=== PATIENT | female | born 1985 | race Caucasian/White ===

== ENCOUNTER → 2016-10-18 | Day surgery (SDC) | payer SELFPAY ==
[~2016-10-18] VITALS: Ht 165.1 cm; Wt 51.3 kg
[2016-10-18] VITALS (9 sets, daily range): BP systolic 103–128; BP diastolic 68–78
[~2016-10-18] MED LIST: PROTONIX40 MG ORAL; Propofol 10mg/ml 20ml IV ONE
--- NOTE | 2016-10-18 12:14 | Pre-Procedure Note/Attestation ---
Pre-Procedure Note/Attestation Complete Prior to Procedure Planned Procedure: not applicable Procedure Narrative: egd Indications for Procedure Pre-Operative Diagnosis: gerd Attestation I attest that I discussed the nature of the procedure; its benefits; risks and complications; and alternatives (and the risks and benefits of such alternatives ), prior to the procedure, with the patient (or the patient's legal healthcare sales representative). I attest that, if there was a reasonable possibility of needing a blood transfusion, the patient (or the patient's legal healthcare sales representative) was given the [facility] standardized written summary, pursuant to the [place] Blood Safety Act ([place] Health and Safety Code # 1645, as amended). I attest that I re-evaluated the patient just prior to the surgery and that there has been no change in the patient's H&P, except as documented below: JP SCHWARTZ Oct 18, 2016 12:14
--- NOTE | 2016-10-18 12:16 | Short Stay Surgery H&P ---
History of Present Illness History of Present Illness Chief Complaint GERD HPI Rozina Grimm is a 31 year old female who was admitted on for Heartburn Patient History Allergies: Coded Allergies: No Known Allergies (Unverified , 07/10/14) PAST MEDICAL HISTORY: (1) GERD (gastroesophageal reflux disease) (2) Arthralgia of ankle or foot, left Past Surgeries: Social History: Medication History Scheduled Pantoprazole* (Protonix*), 40 MG ORAL BID, (Reported) Review of Systems Cardiovascular: Reports: no symptoms Respiratory: Reports: no symptoms Skeletal: Reports: no symptoms Gastrointestinal: Reports: no symptoms Genitourinary: Reports: no symptoms Neurologic: Reports: no symptoms Endocrine: Reports: no symptoms Hematologic: Reports: no symptoms Physical Exam Vital Signs Last Vital Signs Date Time Temp Pulse Resp B/P Pulse Ox O2 Delivery O2 Flow Rate FiO2 10/18/16 11:53 98.1 85 20 128/78 100 Room Air Labs Laboratory Tests Test 10/18/16 11:10 Urine HCG, Qualitative Negative Skin: normal HENT: normal Heart: normal Lungs: normal Abdomen: normal Extremities: normal Plan Plan of Care egd Final Diagnosis: Attestation Are the patient's medical conditions optimized for surgery? Attestation Response: yes JP SCHWARTZ Oct 18, 2016 12:15
--- NOTE | 2016-10-18 12:45 | Anethesia Preoperative Eval ---
Anesthesia Pre-op PMH/ROS General Date of Evaluation: Oct 18, 2016 Time of Evaluation: 12:33 Anesthesiologist: asmita ASA Score: ASA 2 Mallampati Score Class I : Soft palate, uvula, fauces, pillars visible Class II: Soft palate, uvula, fauces visible Class III: Soft palate, base of uvula visible Class IV: Only hard plate visible Mallampati Classification: Class II Surgeon: mague Diagnosis: GERD,abdominal pain Surgical Procedure: egd Anesthesia History: none Allergies: Coded Allergies: No Known Allergies (Unverified , 07/10/14) Past Medical History Gastrointestinal/Genitourinary: Reports: GERD Anesthesia Pre-op Phys. Exam Physician Exam Last Vital Signs Date Time Temp Pulse Resp B/P Pulse Ox O2 Delivery O2 Flow Rate FiO2 10/18/16 11:53 98.1 85 20 128/78 100 Room Air Airway Exam Mallampati Score: Class II Teeth: intact Anesthesia Pre-op A/P Labs Urine Test Test 10/18/16 11:10 Urine HCG, Qualitative Negative Risk Assessment & Plan Plan: propofol Status Change Before Surgery: Hamzah Sy MD Oct 18, 2016 12:45
--- NOTE | 2016-10-18 12:46 | Immediate Post-Op Evaluation ---
Immediate Post-Op Evalulation Immediate Post-Op Evalulation Date of Evaluation: Oct 18, 2016 Time of Evaluation: 13:03 IV Fluids: 500 Blood Pressure Systolic: 110 Blood Pressure Diastolic: 73 Pulse Rate: 72 Respiratory Rate: 21 O2 Sat by Pulse Oximetry: 100 Temperature (Fahrenheit): 98.7 Pain Score (1-10): 0 Nausea: No Vomiting: No Complications none Patient Status: awake, patent, none Hydration Status: adequate Hamzha Saul MD Oct 18, 2016 12:46
--- NOTE | 2016-10-18 12:47 | 48 Hour Post Anesthesia Eval ---
Post Anesthesia Evaluation Date of Evaluation: Oct 18, 2016 Time of Evaluation: 13:35 Blood Pressure Systolic: 108 0: 76 Pulse Rate: 75 Respiratory Rate: 15 Temperature (Fahrenheit): 98.6 O2 Sat by Pulse Oximetry: 99 Airway: patent Nausea: No Vomiting: No Pain Intensity: 0 Hydration Status: adequate Cardiopulmonary Status: stable Mental Status/LOC: patient returned to baseline Follow-up Care/Observations: n/a Post-Anesthesia Complications: tolerated well Follow-up care needed: ready to discharge Hamzah Saul MD Oct 18, 2016 12:47
--- NOTE | 2016-10-18 12:59 | Endoscopy Procedure Note ---
Endoscopy Procedure Note Indication for Procedure: gerd Procedures Performed: EGD Operative Findings/Diagnosis: gastritis Specimen: yes Pt Tolerated Procedure Well: Yes Estimated Blood Loss: none Anesthesiologist: asmita Anesthesia: MAC Implant(s) used?: No 50 yrs or older w/o bx or poly: Not Applicable 10yrs. F/U not recommended: Not Applicable JP SCHWARTZ Oct 18, 2016 12:59
--- NOTE | 2016-10-18 20:59 | Procedure Note ---
DATE OF PROCEDURE: 10/18/2016 SURGEON: Tahir Hernandez M.D. PROCEDURE: Upper endoscopy with biopsy. ANESTHESIOLOGIST: . INSTRUMENT: Olympus adult flexible endoscope. INDICATION: Dysphagia and significant acid reflux disease. REASON FOR PROCEDURE: The procedure, risks, benefits, and possible consequences, including hemorrhage, aspiration, perforation and infection, and alternative treatments, were explained to the patient/legal guardian by Dr. Tahir Hernandez and the patient/legal guardian understood and accepted these risks. PROCEDURE: After informed consent was obtained and the patient was adequately sedated, Olympus upper endoscope was advanced from mouth into the second portion of duodenum and retroflexion was performed of the stomach. The patient has mild diffuse gastritis. Random biopsy from antrum of the stomach was obtained to rule out H. pylori infection. Otherwise, the rest of the upper endoscopic exam grossly within normal limit. The patient tolerated the procedure without any complication . SUMMARY OF FINDINGS: Gastritis, otherwise normal upper endoscopy examination . RECOMMENDATIONS: Follow up biopsies and treat accordingly. Tahir Hernandez M.D. DR: Jeronimo JOB#: [id number] CC:
== END | disposition home or self-care (01) ==
LOC: GAS 10:28
DX: R47.02 Dysphasia (principal); K21.9 Gastro-esophageal reflux disease without esophagitis; K29.50 Unspecified chronic gastritis without bleeding; M25.572 Pain in left ankle and joints of left foot
CPT/HCPCS: 43239; 81025; J2704; 94003; 94150

== ENCOUNTER 2017-05-23 20:41 | Emergency (ER) | payer MEDICAID, SELFPAY ==
[~2017-05-23] VITALS: Ht 160 cm; Wt 50.3 kg
[~2017-05-23 20:41] MED LIST changes: -Propofol 10mg/ml 20ml IV ONE
[2017-05-23 21:05] VITALS: BP 132/90
--- NOTE | 2017-05-23 21:18 | Emergency Room Report ---
History of Present Illness General Chief Complaint: General Complaint Source: Patient Present Illness HPI This is a 31-year-old female with a history anxiety and occasional panic attack. She presents with chief complaint of a panic attack. Onset was an hour ago. This is after she drank some Sake. Denies any fever or chills. [place] dizzy and lightheaded. Has palpitation. No nausea no vomiting. Similar symptom in the past. No suicidal thought homicidal thought. Allergies: Coded Allergies: No Known Allergies (Unverified , 07/10/14) Patient History Past Medical History: see triage record, old chart reviewed, psych hx Past Surgical History: none Pertinent Family History: none Social History: Denies: smoking Last Menstrual Period: 05/17/17 Now: No Immunizations: other Reviewed Nursing Documentation: PMH: Agreed, PSxH: Agreed Nursing Documentation-PMH Past Medical History: No History, Except For Hx Cardiac Problems: No Hx Cancer: No Hx Gastrointestinal Problems: Yes - GERD History Of Psychiatric Problem: Yes - Anxiety Hx Neurological Problems: No Review of Systems Eye: Denies: eye pain, blurred vision ENT: Denies: ear pain, nose congestion, throat swelling Respiratory: Reports: shortness of breath, Denies: cough Cardiovascular: Reports: palpitations, Denies: chest pain Gastrointestinal: Denies: abdominal pain, diarrhea, nausea, vomiting Musculoskeletal: Denies: back pain, joint pain Skin: Denies: rash Neurological: Denies: headache, numbness Endocrine: Denies: increased thirst, increased urine Hematologic/Lymphatic: Denies: easy bruising All Other Systems: negative except mentioned in HPI Physical Exam Vital Signs Date Time Temp Pulse Resp B/P (MAP) Pulse Ox O2 Delivery O2 Flow Rate FiO2 05/23/17 20:57 97.3 76 21 132/90 98 Room Air vitals normal Sp02 EP Interpretation: reviewed, normal General Appearance: well appearing, no apparent distress, alert Head: normocephalic, atraumatic Eyes: bilateral eye PERRL, bilateral eye EOMI ENT: hearing grossly normal, normal pharynx Neck: full range of motion, supple, no meningismus Respiratory: chest non-tender, lungs clear, normal breath sounds Cardiovascular #1: regular rate, rhythm, no murmur Gastrointestinal: normal bowel sounds, non tender, no mass, no organomegaly, no bruit, non-distended Musculoskeletal: back normal, gait/station normal, normal range of motion Neurologic: alert, oriented x3 Psychiatric: anxious Skin: warm/dry Medical Decision Making Diagnostic Impression: Primary Impression: Panic attack ER Course Patient with anxiety/panic attack. She does not want any medication. I was able to reassure her and she felt better. Her main concern is there may be something wrong with her heart. Heart rate is normal. No evidence of ACS, PE, dissection. Clinically symptom consistent with a panic attack. Last Vital Signs Date Time Temp Pulse Resp B/P (MAP) Pulse Ox O2 Delivery O2 Flow Rate FiO2 05/23/17 20:57 97.3 76 21 132/90 98 Room Air Status: improved Disposition: HOME, SELF-CARE Condition: Stable Additional Instructions: Followup with your Dr. in 2-3 days. Return if symptom worsen. RACHEL BARRIENTOS M.D. May 23, 2017 21:18
[2017-05-23 21:30] VITALS: BP 132/90
== END 2017-05-23 21:40 | disposition home or self-care (01) ==
LOC: EMR 21:40
DX: F41.0 Panic disorder [episodic paroxysmal anxiety] (principal); K21.9 Gastro-esophageal reflux disease without esophagitis
CPT/HCPCS: 99283